=== PATIENT | female | born 1995 | race African-American/Black ===

== ENCOUNTER 2016-05-12 06:58 | Inpatient (IN) | payer OTHER ==
[~2016-05-12] VITALS: Ht 157.5 cm; Wt 66.7 kg
[~2016-05-12 06:58] MED LIST: IBUPROFEN600 M1 PO; MOTRIN600 MG PO; PERCOCET 5-3251 EACH PO; PRENATAL1 TA2 PO; TYLENOL #31 TAB PO; TYLENOL EXTRA500 M2 PO; VALIUM5 M2 PO
[2016-05-12 10:09] LABS: ABSOLUTE BASOPHIL COUNT 0 /CUMM (0.0-0.2); ABSOLUTE EOSINOPHIL COUNT 0 /CUMM (0.0-0.7); ABSOLUTE GRANULOCYTE CT 4.1 /CUMM (1.4-6.5); ABSOLUTE LYMPH COUNT 1.4 /CUMM (1.2-3.4); ABSOLUTE MONOCYTE COUNT 0.3 /CUMM (0.10-0.60); BASOPHIL % 0.4 % (0.0-2.0); EOSINOPHIL % 0.5 % (0-5); HEMATOCRIT 26.4 % (37-47); MEAN CORPUSCULAR HGB 26.6 PG (27.0-31.0); MEAN CORPUSCULAR HGB CONC 32.1 G/DL (33.0-37.0); MEAN CORPUSCULAR VOLUME 82.9 FL (81.0-99.0); MEAN PLATELET VOLUME 8.2 FL (7.4-10.4); RBC DISTRIBUTION WIDTH 14.8 % (11.5-14.5); RED BLOOD CELL CT 3.18 /CUMM (4.20-5.40); WHITE BLOOD CELL COUNT 5.9 /CUMM (4.8-10.8)
[2016-05-12 10:36] LABS: GRANULOCYTE % 69.8 % (42.2-75.2); PLATELET COUNT 227 /CUMM (130-400)
[2016-05-12 19:23] LABS: ABSOLUTE BASOPHIL COUNT 0 /CUMM (0.0-0.2); ABSOLUTE EOSINOPHIL COUNT 0 /CUMM (0.0-0.7); ABSOLUTE GRANULOCYTE CT 13.5 /CUMM (1.4-6.5); ABSOLUTE LYMPH COUNT 1.3 /CUMM (1.2-3.4); ABSOLUTE MONOCYTE COUNT 0.8 /CUMM (0.10-0.60); BASOPHIL % 0 % (0.0-2.0); EOSINOPHIL % 0 % (0-5); MEAN CORPUSCULAR HGB 27.3 PG (27.0-31.0); MEAN CORPUSCULAR HGB CONC 32.6 G/DL (33.0-37.0); MEAN CORPUSCULAR VOLUME 83.7 FL (81.0-99.0); MEAN PLATELET VOLUME 7.8 FL (7.4-10.4); RBC DISTRIBUTION WIDTH 15.1 % (11.5-14.5); RED BLOOD CELL CT 3.59 /CUMM (4.20-5.40)
[2016-05-12 19:24] LABS: WHITE BLOOD CELL COUNT 15.5 /CUMM (4.8-10.8)
[2016-05-12 19:42] LABS: PLATELET COUNT 203 /CUMM (130-400)
[2016-05-13 09:06] LABS: ABSOLUTE BASOPHIL COUNT 0 /CUMM (0.0-0.2); ABSOLUTE EOSINOPHIL COUNT 0 /CUMM (0.0-0.7); ABSOLUTE GRANULOCYTE CT 7.9 /CUMM (1.4-6.5); ABSOLUTE LYMPH COUNT 2.3 /CUMM (1.2-3.4); ABSOLUTE MONOCYTE COUNT 0.7 /CUMM (0.10-0.60); BASOPHIL % 0.4 % (0.0-2.0); EOSINOPHIL % 0.1 % (0-5); GRANULOCYTE % 72.1 % (42.2-75.2); MEAN CORPUSCULAR HGB 27.3 PG (27.0-31.0); MEAN CORPUSCULAR HGB CONC 32.5 G/DL (33.0-37.0); MEAN CORPUSCULAR VOLUME 84.1 FL (81.0-99.0); PLATELET COUNT 169 /CUMM (130-400); RBC DISTRIBUTION WIDTH 15.1 % (11.5-14.5)
[2016-05-13 09:23] LABS: HEMATOCRIT 24.4 % (37-47)
[2016-05-13 13:18] LABS: ABSOLUTE BASOPHIL COUNT 0 /CUMM (0.0-0.2); ABSOLUTE EOSINOPHIL COUNT 0 /CUMM (0.0-0.7); ABSOLUTE GRANULOCYTE CT 8.1 /CUMM (1.4-6.5); ABSOLUTE LYMPH COUNT 2.1 /CUMM (1.2-3.4); ABSOLUTE MONOCYTE COUNT 0.7 /CUMM (0.10-0.60); BASOPHIL % 0.3 % (0.0-2.0); EOSINOPHIL % 0.1 % (0-5); GRANULOCYTE % 74.1 % (42.2-75.2); HEMATOCRIT 24.6 % (37-47); MEAN CORPUSCULAR HGB 27.8 PG (27.0-31.0); MEAN CORPUSCULAR HGB CONC 32.9 G/DL (33.0-37.0); MEAN CORPUSCULAR VOLUME 84.6 FL (81.0-99.0); MEAN PLATELET VOLUME 8.9 FL (7.4-10.4); PLATELET COUNT 171 /CUMM (130-400); RBC DISTRIBUTION WIDTH 15.2 % (11.5-14.5); RED BLOOD CELL CT 2.91 /CUMM (4.20-5.40)
--- NOTE | 2016-05-14 13:48 | PN- Post Delivery/GYN ---
Subjective Subjective: NO COMPLAINTS Objective Last 24 Hrs of Vital Signs/I&O PER CHART Physical Exam: NO COMPLAINTS VSS ABD SOFT NT INCISION CDI FUNDUS FIRM NT EXT - EDEMA-HOMANS Assessment/Plan Assessment/Plan ASSESS S/[P C/S PLAN CONT PPC DEPO PROVERA
[2016-05-14 14:04] VITALS: BP 102/68
[2016-05-15] MEDS ORDERED: PERCOCET 5-3251 EACH PO (11:00)
[2016-05-15] MEDS ORDERED: IBUPROFEN800 M1 PO (11:00)
--- NOTE | 2016-05-17 14:06 | Operative Report ---
Operative/Inv Procedure Report Surgery Date: 05/12/16 Name of Procedure: Repeat low flap transverse section via Pfannenstiel skin incision lysis of adhesions repair (in left broad ligament Pre-Operative Diagnosis: Previous section term Post-Operative Diagnosis: Same PID adhesions Estimated Blood Loss: 750 Surgeon/Studio Potter: DALILA BUITRAGO,ARNOLDO Paz and Dr. Mir Serna Anesthesia: block Operative/Procedure Note Note: Procedure note patient was taken the operating room placed on position after adequate anesthesia patient placed in dorsolithotomy position the vagina was prepped and draped so fashion a Mcleod was placed sterilely skin testing for anesthesia and surgery was performed found be adequate patient was returned spine position through an old Pfannenstiel skin incision skin was cut at the abdomen and prepped and draped so fashion was carried down to rectus fascia using curved males dissected bluntly as well as sharply off the rectus sheath high into the abdomen abdomen was entered lower blade the John was placed and lower in the incision to protect the bladder the bladder flap was developed and the bladder blade was replaced in the lower uterine segment the uterus was nicked into with the back of knife dissected bluntly as well as sharply on since removed from the field the infant was delivered over the abdominal wall suction well until clear cord was doubly clamped and cut units handed lab support technician was waiting delivering to aid in resuscitation placenta was delivered manually noted to be intact was wiped clean with 2R last insurance free of adherent membranes was oversewn running locking suture for imbrication another layer is running locking suture was used hemostasis was apparent and achieved with interrupted [id number] of 0 suture odd the abdomen was irrigated close amounts warm saline I at this point the back of the uterus was examined and there were I it was bleeding from the mesosalpinx with was ligated using 0 suture the broad ligament was reapproximated using 20 hemostasis was apparent at this point at the abdomen uterus was returned to abdominal cavity maximum amount of fluid was removed from the abdomen was irrigated once again fluid to ensure was free of hemostasis was apparent peritoneum was reapproximated is 0 the far shows reapproximated to continue sutures #1 skin was reapproximated brittany at the end the case the counts were correct the urine was clear and patient was transferred recovery room awake and alert Findings: Normal tubes and ovaries bilaterally posterior patient had flimsy adhesions on consistent with old PID 1 of these [place] on the broad ligament posteriorly on the left mesial salpinx and created bleeding check to be repair during surgery
--- NOTE | 2016-05-27 15:01 | Surgical Discharge Summary ---
Visit Information Visit Dates Admission Date: 05/12/16 Discharge Date: 05/15/16 History of Present Illness Chief Complaint: Here to have my baby Medical History Neurological: NONE EENT: NONE Cardiovascular: NONE Respiratory: asthma Gastrointestinal: NONE Hepatic: NONE Renal: NONE Musculoskeletal: NONE Psychiatric: NONE Endocrine: NONE Blood Disorders: NONE Cancer(s): NONE Isolation History: Standard Surgical History Pertinent Surgical History: Psychosocial History What is Your Primary Language? Prydeinig Review of Systems: 13 point review of systems as stated in the [facility] Hospital Course Course Attending Physician: DALILA BUITRAGO,ARNOLDO Paz Primary Care Physician: PATIENT HAS NO PRIMARY CARE DR Hospital Course: Patient was admitted for repeat section she did well tolerating clear liquid diet first postoperative day she bonded well with her and on the third postoperative day she was discharged home following physical exam to the black female HEENT anicteric lungs clear heart S1 and S2 fundus firm nontender lochia minimal incision clean dry and intact negative Homans negative edema Allergies: Coded Allergies: NO KNOWN ALLERGIES (09/13/15) Disposition Summary Disposition Principal Diagnosis: Status post repeat transverse section Additional Diagnosis: Anemia Discharge Disposition: home or self care Discharge Instructions General Discharge Information Code Status: Full Code Patient's Diet: REG Patient's Activity: Limited to pelvic rest for 6 weeks no driving for 2 weeks Follow-Up Instructions/Appts: Follow-up in my office in 2 weeks brittany to be removed by return nurses Medications at Discharge Discharge Medications: Stop taking the following medications: Ibuprofen (Motrin) 600 MG TAB ORAL Every 6-8 Hours as needed for PAIN Qty = 30 Tylenol With Codeine (Tylenol With Codeine #3 Tablet) 300 MG-30 MG TABLET ORAL EVERY SIX HOURS as needed for pain Qty = 15 Acetaminophen (Tylenol Extra Strength) 500 MG TABLET ORAL EVERY SIX HOURS NEEDED as needed for pain Qty = 100 Continue taking these medications: PNV95/FERROUS FUMARATE/FA ( Formula Tablet) 28 MG IRON-800 MCG TABLET 1 Tablet ORAL DAILY Comments: PER PT #103/Iron Fumarate/FA ( Tablet) 1 EACH TABLET 1 Tablet ORAL DAILY Qty = 100 Start taking the following new medications: Ibuprofen (Ibuprofen) 800 MG TABLET 800 Milligram ORAL EVERY SIX HOURS NEEDED as needed for UTERINE CRAMPING Qty = 30 No Refills Comments: Last Taken: Time:08 Oxycodone HCl/Acetaminophen (Percocet 5-325 MG Tablet) 5 MG-325 MG TABLET 1 Tablet ORAL EVERY 4 HOURS NEEDED as needed for PAIN SCALE 4-6 (MODERATE ) Qty = 30 No Refills Comments: Last Taken: Time:82905/15/2016
== END 2016-05-15 12:05 | DRG 540 ==
LOC: GNO 06:58
PROVIDERS: ADMIT Specialist
DX: O34.211 Maternal care for low transverse scar from previous cesarean delivery (principal); N85.8 Other specified noninflammatory disorders of uterus; Z3A.39 39 weeks gestation of pregnancy; Z37.0 Single live birth; O99.89 Other specified diseases and conditions complicating pregnancy, childbirth and the puerperium; N73.9 Female pelvic inflammatory disease, unspecified
CPT/HCPCS: GNOS; 36415; 80307; 81003; 86920; 87086; 88307; J0131; J0690; J1050; J1170; J1644; J1885; J2765; J7120; P9016